=== PATIENT | female | born 1960 ===

== ENCOUNTER → 2017-12-03 | Outpatient (CLI) | payer BC ==
[~2017-12-03] MED LIST: CYCL10TA29 PO; GLYB1TAB PO; PANT40TA65 PO
--- NOTE | 2017-12-03 13:49 | RADIOLOGY IMAGING REPORT ---
FACILITY: [facility] PATIENT NAME: TIMO AVENDAÑO : [id number] MR: [id number] V: [id number] EXAM DATE: [id number] ORDERING PHYSICIAN: CHUCK KIM TECHNOLOGIST: Alicia Fair PROCEDURE:BILATERAL DIGITAL SCREENING MAMMOGRAM WITH CAD ASSISTED INTERPRETATION & 3D TOMOSYNTHESIS COMPARISON:Prior mammograms 03/04/16. INDICATIONS:screening FINDINGS: Small amount of fibroglandular tissue is seen throughout the breasts. The parenchymal pattern has remained stable allowing for difference in mammographic technique & patient positioning. There is no evidence of malignant appearing mass, malignant appearing calcifications or other secondary sign of malignancy in either breast. DIAGNOSTIC CATEGORY 1--NEGATIVE. RECOMMENDATIONS: ROUTINE MAMMOGRAM AND CLINICAL EVALUATION. IMPRESSION: BIRADS 1: Negative. No significant abnormality is seen. Dictated by: Zuleyma Huerta M.D. on 12/03/2017 at 9:25 Transcribed by: AUGUSTUS on 12/03/2017 at 9:33 Approved by: Zuleyma Huerta M.D. on 12/03/2017 at 13:48 [facility]
== END ==
LOC: MAMO 01:43
PROVIDERS: ATTEND Physician Assistant
DX: Z12.31 Encounter for screening mammogram for malignant neoplasm of breast (principal)
CPT/HCPCS: 77063; 77067

== ENCOUNTER → 2018-08-11 | Outpatient (REF) | payer BC ==
[2018-08-11 09:31] LABS: INR 0.91
== END ==
LOC: ZZSENDIN 08:52
PROVIDERS: ATTEND Physician Assistant
DX: Z01.818 Encounter for other preprocedural examination (principal)
CPT/HCPCS: 85610; 85730

== ENCOUNTER → 2018-08-13 | Outpatient (CLI) | payer BC ==
[~2018-08-13] MED LIST changes: +IOPAMIDOL 76% 150 ML INFUS BTL 150 ML ONE
--- NOTE | 2018-08-13 15:52 | RADIOLOGY IMAGING REPORT ---
FACILITY: [facility] [place] PATIENT NAME: Gerri Rosen : 1960 MR: [id number] V: [id number] EXAM DATE: ORDERING PHYSICIAN: [facility] [place] TECHNOLOGIST: Location: [facility] Patient: Gerri Rosen : 1960 Visit/Account:[id number] Date of Sevice: 08/13/2018 EXAMINATION: CT neck with IV contrast HISTORY: Buccal mucosa cancer TECHNIQUE: CT was obtained through the neck following IV contrast administration. Sagittal and co dot reformatted images were generated. 75 mL of IV Isovue-370 injected. One of the following dose optimization techniques was utilized in the performance of this exam: autom ated exposure control; adjustment of the mA and/or kV according to patient size; or use of iterative reconstruction technique. Specific details can be referenced in the facility's radiology CT exam ope rational policy. COMPARISON: None. FINDINGS: Parotid/submandibular and thyroid glands: Bilateral subcentimeter thyroid nodules. Pharyngeal and retropharyngeal soft tissues: Normal. Oral cavity and component prep operator space soft tissues: Normal. Larynx/glottis and airway: Normal. Lymph nodes: Normal. Vessels: Normal for age. Visualized orbits / brain: No significant finding. Upper chest: Normal. Bones/sinuses/mastoid air cells: Multilevel degenerative cervical foraminal narrowing. Moderate C6-7 disc space degeneration. IMPRESSION: 1. Multiple bilateral subcentimeter thyroid nodules are statistically benign. Thyroid ultrasound co uld be utilized for further characterization as needed. 2. Otherwise normal neck CT. No neck mass or adenopathy identified. Report Dictated By: Ramesh Chávez MD at 08/13/2018 3:40 PM Report E-Signed By: Ramesh Chávez MD at 08/13/2018 3:48 PM WSN:[id number]
== END ==
LOC: CT 01:32
PROVIDERS: ATTEND Otolaryngology
DX: C06.0 Malignant neoplasm of cheek mucosa (principal)
CPT/HCPCS: 70491; Q9967